=== PATIENT | male | born 1960 | race Caucasian/White ===

== ENCOUNTER 2018-11-25 10:40 | Emergency (ER) | payer OTHER, SELFPAY ==
--- NOTE | 2018-11-25 11:23 | RAD ---
XR Chest 1 View Portable History: Palpitations Comparison: None. Findings: Heart size mildly enlarged. No pneumothorax. No effusion. Likely distended left upper lobe pulmonary vessel seen en face and less likely likely a nodule. Old left midclavicular fracture. No acute osseous abnormality. Impression: Mild cardiomegaly otherwise no acute intrathoracic abnormality.
[2018-11-25 11:24] LABS: Hemoglobin 14.4 g/dL (14.0-18.0); Mean Corpuscular HGB CONC 34.4 g/dL (32.0-36.0); Mean Corpuscular Hemoglobin 38.5 pg (27.0-31.0); Platelet Count 169 thou/uL (130-400); RBC Distribution Width 13.6 % (11.5-14.5); Red Blood Cell (RBC) Count 3.74 mill/uL (4.70-6.10); White Blood Cell (WBC) Count 3.6 thou/uL (4.8-10.8)
[2018-11-25 11:43] LABS: Calcium 9.7 mg/dL (7.8-10.44); Chloride 98 mmol/L (98-107); Potassium 3.9 mmol/L (3.5-5.1); Sodium 136 mmol/L (136-145)
[2018-11-25 11:44] LABS: Globulin 3.2 g/dL (2.4-3.5); Glucose 111 mg/dL (70-105); Protein, Total 7.2 g/dL (6.0-8.3)
[2018-11-25 11:45] LABS: Anion Gap 15 mmol/L (10-20); Carbon Dioxide 27 mmol/L (22-29)
[2018-11-25 11:46] LABS: Bilirubin, Total 1.1 mg/dL (0.2-1.2)
[2018-11-25 11:47] LABS: Alkaline Phosphatase 123 U/L (40-110); Calc. Creatinine Clearance 0 mL/min (70-130); Estimated GFR-MDRD 71
[2018-11-25 11:48] LABS: BUN (Urea Nitrogen) 14 mg/dL (8.4-25.7)
[2018-11-25 11:49] LABS: AST (SGOT) 231 U/L (5-34)
[2018-11-25 11:50] LABS: ALT (SGPT) 87 U/L (8-55); Lipase 16 U/L (8-78)
[2018-11-25 11:52] LABS: Band 16 % (5-11); Lymphocytes 23 % (21-51); MDiff Complete? YES; Macrocytosis MODERATE=16-30 cells (100X) (0-5/hpf); Monocytes 12 % (0-10); Neutrophil 42 % (42-75); Platelet Morphology Comment Appears Adequate; Polychromasia SLIGHT = 2-3 cells (100X) (0-2/hpf); Reactive Lymphocytes 7 % (0-10); Stomatocytes MODERATE= 6-15 cells (100X) (0-1/hpf)
[2018-11-25 11:55] LABS: Magnesium 1.7 mg/dL (1.6-2.6); Phosphorus 3.4 mg/dL (2.3-4.7)
== END 2018-11-25 14:32 | disposition home or self-care (01) ==
LOC: ERS 10:40
DX: I48.91 Unspecified atrial fibrillation (principal); I10 Essential (primary) hypertension; R00.2 Palpitations; R74.0 Nonspecific elevation of levels of transaminase and lactic acid dehydrogenase [LDH]; F17.210 Nicotine dependence, cigarettes, uncomplicated
CPT/HCPCS: 36415; 71045; 80053; 83690; 83735; 84100; 84484; 85025; 93005

== ENCOUNTER 2020-08-16 08:03 | Inpatient (IN) | payer OTHER, SELFPAY ==
[2020-08-16] MEDS ORDERED: Aspirin Chewable 81 MG TAB ONE (08:34)
[2020-08-16] MEDS ORDERED: Lorazepam 2 MG/ML VIAL ONE (08:34)
[2020-08-16] MEDS ORDERED: Diltiazem HCl 125 MG, Admixture Fee 1 EACH in Sodium Chloride 0.9% 100 ML IVPB SCH (08:45)
[2020-08-16 08:53] LABS: Band 4 % (5-11); Hemoglobin 14.3 g/dL (14.0-18.0); Lymphocytes 28 % (21-51); MDiff Complete? YES; Macrocytosis MODERATE=16-30 cells (100X) (0-5/hpf); Mean Corpuscular HGB CONC 32.5 g/dL (32.0-36.0); Mean Corpuscular Hemoglobin 40.4 pg (27.0-31.0); Mean Platelet Volume 9.5 fL (7.4-10.4); Monocytes 14 % (0-10); Neutrophil 53 % (42-75); Platelet Count 140 thou/uL (130-400); Platelet Morphology Comment Appears Adequate; RBC Distribution Width 14.5 % (11.5-14.5); Reactive Lymphocytes 1 % (0-10); Red Blood Cell (RBC) Count 3.55 mill/uL (4.70-6.10); Stomatocytes SLIGHT = 2-5 cells (100X) (0-1/hpf); White Blood Cell (WBC) Count 4.3 thou/uL (4.8-10.8)
[2020-08-16 09:11] LABS: INR-International Normal Ratio 1.1; PTT 29.4 sec (22.9-36.1); Prothrombin Time 14.1 sec (12.0-14.7)
[2020-08-16 09:13] LABS: D-Dimer Test 0.96 *mcg/mL (0.27-0.43)
[2020-08-16 09:18] LABS: AST (SGOT) 86 U/L (5-34); Alkaline Phosphatase 142 U/L (40-110); Anion Gap 21 mmol/L (10-20); BUN (Urea Nitrogen) 8 mg/dL (8.4-25.7); Calc. Creatinine Clearance 0 mL/min (70-130); Carbon Dioxide 22 mmol/L (22-29); Globulin 3.3 g/dL (2.4-3.5); Glucose 139 mg/dL (70-105)
[2020-08-16 09:29] LABS: Albumin 3.9 g/dL (3.5-5.0)
[2020-08-16 09:30] LABS: Chloride 95 mmol/L (98-107); Sodium 133 mmol/L (136-145)
[2020-08-16 09:31] LABS: Calcium 9.8 mg/dL (7.8-10.44)
[2020-08-16 09:32] LABS: Protein, Total 7.2 g/dL (6.0-8.3)
[2020-08-16] MEDS ORDERED: Magnesium 2 GM/50 ML BAG (IN WATER) ONE (09:32)
[2020-08-16 09:33] LABS: Bilirubin, Total 3.3 mg/dL (0.2-1.2)
[2020-08-16 10:22] LABS: ALT (SGPT) 33 U/L (8-55)
[2020-08-16 11:39] LABS: Troponin I Less than 0.010 ng/mL (< 0.028)
[2020-08-16] MEDS ORDERED: Enoxaparin Sodium 30 MG/0.3 ML SYRINGE ONE (11:46)
[2020-08-16] MEDS ORDERED: Enoxaparin Sodium 60 MG/0.6 ML SYRINGE ONE (11:46)
[2020-08-16] MEDS ORDERED: Ondansetron ODT 4 MG TAB PO PRN (12:17)
[2020-08-16] MEDS ORDERED: Ondansetron PF 4 MG/2 ML Vial IVP PRN (12:17)
[2020-08-16] MEDS ORDERED: Digoxin 0.5 MG/2 ML AMP SLOW IVP SCH (12:17)
[2020-08-16] MEDS ORDERED: Acetaminophen 500 MG TAB PO PRN (12:17)
[2020-08-16] MEDS ORDERED: Labetalol HCl 100 MG/20 ML VIAL SLOW IVP PRN (12:17)
[2020-08-16] MEDS ORDERED: Famotidine 20 MG TAB PO SCH (12:30)
[2020-08-16] MEDS ORDERED: Digoxin 0.5 MG/2 ML AMP ONE (13:24)
[2020-08-16 14:06] LABS: Magnesium 1.4 mg/dL (1.6-2.6); Phosphorus 3.5 mg/dL (2.3-4.7)
[2020-08-16 14:25] VITALS: BMI 29.4
[2020-08-16] MEDS: Sodium Chloride 0.9% 1,000 ML IV SCH (14:48)
[2020-08-16] MEDS: Thiamine 100 MG TAB PO SCH (14:51)
[2020-08-16] MEDS: Folic Acid 1 MG TAB PO SCH (14:51)
[2020-08-16] MEDS: Multivit, Therapeutic 1 TAB PO SCH (14:51)
[2020-08-16 15:04] LABS: Troponin I Less than 0.010 ng/mL (< 0.028)
[2020-08-16] MEDS: Digoxin 0.5 MG/2 ML AMP SLOW IVP SCH ×2 (16:44→20:18)
[2020-08-16] MEDS: Enoxaparin Sodium 100 MG/ML SYRINGE SC SCH (20:19)
[2020-08-16] MEDS: Famotidine 20 MG TAB PO SCH (20:19)
[2020-08-17] MEDS: Digoxin 0.5 MG/2 ML AMP SLOW IVP SCH ×2 (00:01→04:50)
[2020-08-17] MEDS: Sodium Chloride 0.9% 1,000 ML IV SCH ×2 (02:36→16:08)
[2020-08-17] MEDS ORDERED: Diltiazem 125 MG in Sodium Chloride 0.9% 100 ML IVPB SCH ×2 (03:30→17:12)
[2020-08-17 05:05] LABS: Hemoglobin 13.1 g/dL (14.0-18.0); Mean Corpuscular HGB CONC 33.5 g/dL (32.0-36.0); Mean Corpuscular Hemoglobin 42.1 pg (27.0-31.0); Mean Platelet Volume 9.8 fL (7.4-10.4); Platelet Count 121 thou/uL (130-400); RBC Distribution Width 14.3 % (11.5-14.5); Red Blood Cell (RBC) Count 3.12 mill/uL (4.70-6.10); White Blood Cell (WBC) Count 3.6 thou/uL (4.8-10.8)
[2020-08-17 05:11] LABS: ALT (SGPT) 27 U/L (8-55); AST (SGOT) 78 U/L (5-34); Albumin 3.3 g/dL (3.5-5.0); Alkaline Phosphatase 120 U/L (40-110); Anion Gap 15 mmol/L (10-20); BUN (Urea Nitrogen) 7 mg/dL (8.4-25.7); Bilirubin, Total 2.2 mg/dL (0.2-1.2); Calc. Creatinine Clearance 158 mL/min (70-130); Calcium 8.9 mg/dL (7.8-10.44); Carbon Dioxide 24 mmol/L (22-29); Chloride 99 mmol/L (98-107); Globulin 2.7 g/dL (2.4-3.5); Glucose 106 mg/dL (70-105); Magnesium 1.7 mg/dL (1.6-2.6); Potassium 4.4 mmol/L (3.5-5.1); Sodium 134 mmol/L (136-145)
[2020-08-17 05:41] LABS: Band 10 % (5-11); Eosinophils 1 % (0-10); Lymphocytes 28 % (21-51); MDiff Complete? YES; Monocytes 17 % (0-10); Neutrophil 44 % (42-75)
[2020-08-17] MEDS: Thiamine 100 MG TAB PO SCH (08:34)
[2020-08-17] MEDS: buPROPion 75 MG TAB PO SCH ×2 (08:34→20:51)
[2020-08-17] MEDS: Aspirin 81 mg Enteric Coated Tablet PO SCH (08:34)
[2020-08-17] MEDS: Famotidine 20 MG TAB PO SCH ×2 (08:34→20:52)
[2020-08-17] MEDS: Enoxaparin Sodium 100 MG/ML SYRINGE SC SCH ×2 (08:34→20:51)
[2020-08-17] MEDS: Folic Acid 1 MG TAB PO SCH (08:35)
[2020-08-17] MEDS: Multivit, Therapeutic 1 TAB PO SCH (08:35)
[2020-08-17] MEDS ORDERED: Furosemide 40 MG/4 ML VIAL SLOW IVP SCH (13:00)
[2020-08-17 13:12] LABS: Hemoglobin A1c 4.7 % (4.0-6.0)
[2020-08-17] MEDS ORDERED: Carvedilol 6.25 MG TAB PO SCH (21:00)
[2020-08-18] MEDS: Sodium Chloride 0.9% 1,000 ML IV SCH (05:26)
[2020-08-18] MEDS ORDERED: Diltiazem 125 MG in Sodium Chloride 0.9% 100 ML IVPB SCH (08:22)
[2020-08-18 08:50] LABS: Anion Gap 13 mmol/L (10-20); BUN (Urea Nitrogen) 6 mg/dL (8.4-25.7); Calc. Creatinine Clearance 158 mL/min (70-130); Calcium 8.7 mg/dL (7.8-10.44); Carbon Dioxide 25 mmol/L (22-29); Chloride 100 mmol/L (98-107); Glucose 94 mg/dL (70-105); Potassium 4.2 mmol/L (3.5-5.1); Sodium 134 mmol/L (136-145)
[2020-08-18] MEDS: Folic Acid 1 MG TAB PO SCH (09:46)
[2020-08-18] MEDS: Famotidine 20 MG TAB PO SCH ×2 (09:46→20:06)
[2020-08-18] MEDS: Thiamine 100 MG TAB PO SCH (09:46)
[2020-08-18] MEDS: Aspirin 81 mg Enteric Coated Tablet PO SCH (09:46)
[2020-08-18] MEDS: Carvedilol 6.25 MG TAB PO SCH ×3 (09:47→20:06)
[2020-08-18] MEDS: Multivit, Therapeutic 1 TAB PO SCH (09:47)
[2020-08-18] MEDS: buPROPion 75 MG TAB PO SCH ×2 (09:47→20:07)
[2020-08-18] MEDS: Enoxaparin Sodium 100 MG/ML SYRINGE SC SCH ×2 (09:48→20:06)
[2020-08-18] MEDS: Digoxin 0.125 MG TAB PO SCH (10:15)
[2020-08-18] MEDS: Furosemide 40 MG/4 ML VIAL SLOW IVP SCH (10:15)
[2020-08-18] MEDS ORDERED: Furosemide 40 MG/4 ML VIAL IVP SCH (16:45)
[2020-08-18] MEDS ORDERED: Communication Order-Pharmacy FS SCH (17:15)
[2020-08-18] MEDS ORDERED: Sodium Chloride 0.9% 1,000 ML IV SCH (17:15)
[2020-08-19] MEDS: Enoxaparin Sodium 100 MG/ML SYRINGE SC SCH ×2 (07:44→20:28)
[2020-08-19] MEDS: Furosemide 40 MG/4 ML VIAL SLOW IVP SCH (07:44)
[2020-08-19] MEDS: Folic Acid 1 MG TAB PO SCH (07:45)
[2020-08-19] MEDS: Carvedilol 6.25 MG TAB PO SCH (07:45)
[2020-08-19] MEDS: Famotidine 20 MG TAB PO SCH ×2 (07:45→20:28)
[2020-08-19] MEDS: buPROPion 75 MG TAB PO SCH ×2 (07:45→20:28)
[2020-08-19] MEDS: Digoxin 0.125 MG TAB PO SCH (07:45)
[2020-08-19] MEDS: Multivit, Therapeutic 1 TAB PO SCH (07:45)
[2020-08-19] MEDS: Aspirin 81 mg Enteric Coated Tablet PO SCH (07:45)
[2020-08-19] MEDS: Thiamine 100 MG TAB PO SCH (07:45)
[2020-08-19 08:04] LABS: Anion Gap 15 mmol/L (10-20); BUN (Urea Nitrogen) 8 mg/dL (8.4-25.7); Calc. Creatinine Clearance 136 mL/min (70-130); Calcium 9.1 mg/dL (7.8-10.44); Carbon Dioxide 27 mmol/L (22-29); Chloride 94 mmol/L (98-107); Glucose 92 mg/dL (70-105); Sodium 132 mmol/L (136-145)
[2020-08-19] MEDS: Carvedilol 3.125 MG TAB PO SCH (17:02)
[2020-08-20 04:51] LABS: Hemoglobin 13.7 g/dL (14.0-18.0); Mean Corpuscular Hemoglobin 40.8 pg (27.0-31.0); Mean Platelet Volume 9.4 fL (7.4-10.4); Platelet Count 149 thou/uL (130-400); RBC Distribution Width 14.6 % (11.5-14.5); Red Blood Cell (RBC) Count 3.34 mill/uL (4.70-6.10); White Blood Cell (WBC) Count 3.5 thou/uL (4.8-10.8)
[2020-08-20 04:52] LABS: Anion Gap 16 mmol/L (10-20); BUN (Urea Nitrogen) 12 mg/dL (8.4-25.7); Calc. Creatinine Clearance 128 mL/min (70-130); Calcium 8.8 mg/dL (7.8-10.44); Carbon Dioxide 25 mmol/L (22-29); Chloride 96 mmol/L (98-107); Glucose 91 mg/dL (70-105); Magnesium 1.8 mg/dL (1.6-2.6); Potassium 3.7 mmol/L (3.5-5.1); Sodium 133 mmol/L (136-145)
[2020-08-20 05:20] LABS: Band 11 % (5-11); Eosinophils 3 % (0-10); Lymphocytes 44 % (21-51); MDiff Complete? YES; Monocytes 11 % (0-10); Neutrophil 31 % (42-75)
[2020-08-20] MEDS: Thiamine 100 MG TAB PO SCH (05:24)
[2020-08-20] MEDS: Famotidine 20 MG TAB PO SCH ×2 (05:24→20:25)
[2020-08-20] MEDS: Digoxin 0.125 MG TAB PO SCH (05:24)
[2020-08-20] MEDS: Multivit, Therapeutic 1 TAB PO SCH (05:24)
[2020-08-20] MEDS: buPROPion 75 MG TAB PO SCH ×2 (05:24→20:26)
[2020-08-20] MEDS: Sodium Chloride 0.9% 1,000 ML IV SCH ×2 (05:25→16:38)
[2020-08-20] MEDS: Folic Acid 1 MG TAB PO SCH (05:25)
[2020-08-20] MEDS: Aspirin 81 mg Enteric Coated Tablet PO SCH (05:25)
[2020-08-20] MEDS: Furosemide 40 MG/4 ML VIAL SLOW IVP SCH (05:36)
[2020-08-20] MEDS: Carvedilol 3.125 MG TAB PO SCH ×3 (05:36→16:38)
[2020-08-20] MEDS ORDERED: Heparin 10,000 UNITS/ 10 ML VIAL ONE ×2 (08:10→11:39)
[2020-08-20] MEDS ORDERED: Nitroglycerin 100MG/250ML BOT 0 ML ONE (08:11)
[2020-08-20] MEDS ORDERED: Lidocaine 1% (PF) 30 ML VIAL ONE ×2 (08:11→12:04)
[2020-08-20] MEDS ORDERED: Iopamidol 370 76% 100 ML VIAL ONE (08:47)
[2020-08-20] MEDS ORDERED: Iopamidol 370 76% 50 ML VIAL FS ONE (08:47)
[2020-08-20] MEDS ORDERED: Verapamil 5 MG/2 ML VIAL ONE ×2 (09:10→11:39)
[2020-08-20] MEDS ORDERED: Nitroglycerin 100MG/250ML BOT 250 ML ONE (11:39)
[2020-08-20] MEDS ORDERED: Digoxin 0.125 MG TAB PO SCH (13:15)
[2020-08-20] MEDS ORDERED: Sodium Chloride 0.9% 200 ML IV PRN (14:13)
[2020-08-20] MEDS ORDERED: Nitroglycerin 0.4 MG TAB (25 Tab Bottle) SL PRN (14:13)
[2020-08-20] MEDS ORDERED: Acetaminophen/Codeine 30-300mg Tablet PO PRN ×2 (14:13)
[2020-08-20] MEDS: Amiodarone 450 MG in Dextrose 5% in Water 250 ML IVPB SCH (14:31)
[2020-08-20] MEDS ORDERED: DOPamine 400 MG/D5W 250 ML 250 ML ONE (16:05)
[2020-08-20] MEDS ORDERED: DOPamine 400 MG/D5W 250 ML 250 ML IVPB SCH ×2 (16:15→16:45)
[2020-08-20] MEDS: Apixaban 5 MG TAB PO SCH (20:25)
[2020-08-21] MEDS: Amiodarone 450 MG in Dextrose 5% in Water 250 ML IVPB SCH ×2 (00:40→15:41)
[2020-08-21] MEDS: Sodium Chloride 0.9% 1,000 ML IV SCH ×2 (03:10→14:03)
[2020-08-21 08:17] LABS: Anion Gap 15 mmol/L (10-20); BUN (Urea Nitrogen) 8 mg/dL (8.4-25.7); Calc. Creatinine Clearance 136 mL/min (70-130); Calcium 9.3 mg/dL (7.8-10.44); Carbon Dioxide 24 mmol/L (22-29); Chloride 100 mmol/L (98-107); Glucose 115 mg/dL (70-105); Potassium 4.2 mmol/L (3.5-5.1); Sodium 135 mmol/L (136-145)
[2020-08-21] MEDS: Famotidine 20 MG TAB PO SCH ×2 (08:47→20:51)
[2020-08-21] MEDS: buPROPion 75 MG TAB PO SCH ×2 (08:47→20:47)
[2020-08-21] MEDS: Aspirin 81 mg Enteric Coated Tablet PO SCH (08:47)
[2020-08-21] MEDS: Apixaban 5 MG TAB PO SCH ×2 (08:47→20:52)
[2020-08-21] MEDS: Multivit, Therapeutic 1 TAB PO SCH (08:47)
[2020-08-21] MEDS: Folic Acid 1 MG TAB PO SCH (08:47)
[2020-08-21] MEDS: Thiamine 100 MG TAB PO SCH (08:48)
[2020-08-21] MEDS ORDERED: Digoxin 0.25 MG TAB PO SCH (09:00)
[2020-08-21] MEDS: Carvedilol 3.125 MG TAB PO SCH ×2 (10:40→17:27)
[2020-08-21] MEDS: Furosemide 40 MG/4 ML VIAL SLOW IVP SCH (10:40)
[2020-08-21] MEDS ORDERED: PROPOFOL 20 ML ONE (11:18)
[2020-08-21] MEDS ORDERED: PROPOFOL 200 MG/20 ML VIAL ONE (11:41)
[2020-08-21] MEDS ORDERED: Lidocaine 1% PF 5 ML VIAL ONE (11:41)
[2020-08-22] MEDS: Thiamine 100 MG TAB PO SCH (09:14)
[2020-08-22] MEDS: Carvedilol 3.125 MG TAB PO SCH ×2 (09:14→16:29)
[2020-08-22] MEDS: Aspirin 81 mg Enteric Coated Tablet PO SCH (09:14)
[2020-08-22] MEDS: buPROPion 75 MG TAB PO SCH ×2 (09:14→20:37)
[2020-08-22] MEDS: Famotidine 20 MG TAB PO SCH ×2 (09:15→20:38)
[2020-08-22] MEDS: Folic Acid 1 MG TAB PO SCH (09:15)
[2020-08-22] MEDS: Apixaban 5 MG TAB PO SCH ×2 (09:15→20:37)
[2020-08-22] MEDS: Furosemide 40 MG/4 ML VIAL SLOW IVP SCH (09:15)
[2020-08-22] MEDS: Multivit, Therapeutic 1 TAB PO SCH (09:15)
[2020-08-22] MEDS: Amiodarone 200 MG TAB PO SCH ×3 (09:16→20:37)
[2020-08-22] MEDS: DOPamine 400 MG/D5W 250 ML 250 ML IVPB SCH (09:50)
[2020-08-22 11:03] LABS: Anion Gap 14 mmol/L (10-20); BUN (Urea Nitrogen) 7 mg/dL (8.4-25.7); Calc. Creatinine Clearance 133 mL/min (70-130); Calcium 9.6 mg/dL (7.8-10.44); Carbon Dioxide 25 mmol/L (22-29); Chloride 99 mmol/L (98-107); Glucose 81 mg/dL (70-105); Potassium 3.9 mmol/L (3.5-5.1); Sodium 134 mmol/L (136-145)
[2020-08-22] MEDS: Cephalexin 250 MG CAP PO SCH ×2 (11:32→17:13)
[2020-08-23] MEDS: Cephalexin 250 MG CAP PO SCH ×4 (00:53→17:43)
[2020-08-23 09:31] LABS: Anion Gap 12 mmol/L (10-20); BUN (Urea Nitrogen) 8 mg/dL (8.4-25.7); Calc. Creatinine Clearance 112 mL/min (70-130); Calcium 9.8 mg/dL (7.8-10.44); Carbon Dioxide 26 mmol/L (22-29); Chloride 101 mmol/L (98-107); Glucose 110 mg/dL (70-105); Potassium 5.1 mmol/L (3.5-5.1); Sodium 134 mmol/L (136-145)
[2020-08-23] MEDS: Thiamine 100 MG TAB PO SCH (09:45)
[2020-08-23] MEDS: Multivit, Therapeutic 1 TAB PO SCH (09:45)
[2020-08-23] MEDS: Amiodarone 200 MG TAB PO SCH ×3 (09:45→20:30)
[2020-08-23] MEDS: buPROPion 75 MG TAB PO SCH ×2 (09:45→20:30)
[2020-08-23] MEDS: Famotidine 20 MG TAB PO SCH ×2 (09:45→20:30)
[2020-08-23] MEDS: Apixaban 5 MG TAB PO SCH ×2 (09:45→20:30)
[2020-08-23] MEDS: Folic Acid 1 MG TAB PO SCH (09:45)
[2020-08-23] MEDS: Aspirin 81 mg Enteric Coated Tablet PO SCH (09:45)
[2020-08-23] MEDS: Furosemide 40 MG/4 ML VIAL SLOW IVP SCH (09:46)
[2020-08-23] MEDS: DOPamine 400 MG/D5W 250 ML 250 ML IVPB SCH (15:25)
[2020-08-23] MEDS ORDERED: DOPamine 400 MG/D5W 250 ML 250 ML IVPB SCH (16:26)
[2020-08-24] MEDS: Cephalexin 250 MG CAP PO SCH ×4 (00:16→18:36)
[2020-08-24] MEDS: Famotidine 20 MG TAB PO SCH ×2 (08:23→21:28)
[2020-08-24] MEDS: Apixaban 5 MG TAB PO SCH ×2 (08:23→21:28)
[2020-08-24] MEDS: Folic Acid 1 MG TAB PO SCH (08:23)
[2020-08-24] MEDS: Amiodarone 200 MG TAB PO SCH ×3 (08:23→21:27)
[2020-08-24] MEDS: Aspirin 81 mg Enteric Coated Tablet PO SCH (08:23)
[2020-08-24] MEDS: Thiamine 100 MG TAB PO SCH (08:24)
[2020-08-24] MEDS: Multivit, Therapeutic 1 TAB PO SCH (08:24)
[2020-08-24] MEDS: buPROPion 75 MG TAB PO SCH ×2 (08:28→21:28)
[2020-08-24 10:02] LABS: Anion Gap 11 mmol/L (10-20); BUN (Urea Nitrogen) 9 mg/dL (8.4-25.7); Calc. Creatinine Clearance 105 mL/min (70-130); Calcium 9.8 mg/dL (7.8-10.44); Carbon Dioxide 28 mmol/L (22-29); Chloride 98 mmol/L (98-107); Glucose 119 mg/dL (70-105); Potassium 4.3 mmol/L (3.5-5.1); Sodium 133 mmol/L (136-145)
[2020-08-24] MEDS: Furosemide 40 MG/4 ML VIAL SLOW IVP SCH (10:29)
[2020-08-24] MEDS ORDERED: Carvedilol 3.125 MG TAB PO SCH (10:45)
[2020-08-24] MEDS: Carvedilol 3.125 MG TAB PO SCH (17:43)
[2020-08-24] MEDS ORDERED: Polyethylene Glycol 3350 17 GM Packet PO SCH (19:15)
[2020-08-25] MEDS: Cephalexin 250 MG CAP PO SCH ×5 (00:06→23:57)
[2020-08-25] MEDS: Apixaban 5 MG TAB PO SCH ×2 (09:02→20:36)
[2020-08-25] MEDS: Famotidine 20 MG TAB PO SCH ×2 (09:02→20:36)
[2020-08-25] MEDS: Multivit, Therapeutic 1 TAB PO SCH (09:02)
[2020-08-25] MEDS: buPROPion 75 MG TAB PO SCH ×2 (09:02→20:36)
[2020-08-25] MEDS: Folic Acid 1 MG TAB PO SCH (09:02)
[2020-08-25] MEDS: Amiodarone 200 MG TAB PO SCH ×3 (09:02→20:37)
[2020-08-25] MEDS: Aspirin 81 mg Enteric Coated Tablet PO SCH (09:02)
[2020-08-25] MEDS: Thiamine 100 MG TAB PO SCH (09:02)
[2020-08-25] MEDS: Polyethylene Glycol 3350 17 GM Packet PO SCH (09:03)
[2020-08-25] MEDS ORDERED: DOPamine 400 MG/D5W 250 ML 250 ML IVPB SCH ×2 (15:00→17:52)
[2020-08-26] MEDS: Cephalexin 250 MG CAP PO SCH (06:01)
[2020-08-26 08:06] LABS: Hemoglobin 15.3 g/dL (14.0-18.0); Mean Corpuscular HGB CONC 31.6 g/dL (32.0-36.0); Mean Corpuscular Hemoglobin 39.2 pg (27.0-31.0); Mean Platelet Volume 9.3 fL (7.4-10.4); Platelet Count 240 thou/uL (130-400); RBC Distribution Width 14.4 % (11.5-14.5); White Blood Cell (WBC) Count 4.8 thou/uL (4.8-10.8)
[2020-08-26 08:20] LABS: Anion Gap 11 mmol/L (10-20); BUN (Urea Nitrogen) 9 mg/dL (8.4-25.7); Calc. Creatinine Clearance 92 mL/min (70-130); Carbon Dioxide 28 mmol/L (22-29); Chloride 96 mmol/L (98-107); Glucose 79 mg/dL (70-105); Potassium 5.4 mmol/L (3.5-5.1); Sodium 130 mmol/L (136-145)
[2020-08-26] MEDS: Amiodarone 200 MG TAB PO SCH ×2 (08:57→20:58)
[2020-08-26] MEDS: Famotidine 20 MG TAB PO SCH ×2 (08:57→20:58)
[2020-08-26] MEDS: Multivit, Therapeutic 1 TAB PO SCH (08:57)
[2020-08-26] MEDS: Apixaban 5 MG TAB PO SCH ×2 (08:57→20:58)
[2020-08-26] MEDS: Folic Acid 1 MG TAB PO SCH (08:57)
[2020-08-26] MEDS: buPROPion 75 MG TAB PO SCH ×2 (08:57→20:58)
[2020-08-26] MEDS: Aspirin 81 mg Enteric Coated Tablet PO SCH (08:57)
[2020-08-26] MEDS: Thiamine 100 MG TAB PO SCH (08:57)
[2020-08-26] MEDS: Polyethylene Glycol 3350 17 GM Packet PO SCH (08:58)
[2020-08-26 09:09] LABS: Band 2 % (5-11); Eosinophils 4 % (0-10); Large Platelets SLIGHT; Lymphocytes 29 % (21-51); MDiff Complete? YES; Macrocytosis MODERATE=16-30 cells (100X) (0-5/hpf); Monocytes 18 % (0-10); Neutrophil 44 % (42-75); Platelet Morphology Comment Appears Adequate; Reactive Lymphocytes 1 % (0-10)
[2020-08-26] MEDS: Carvedilol 3.125 MG TAB PO SCH (16:49)
[2020-08-27 07:57] LABS: Anion Gap 12 mmol/L (10-20); BUN (Urea Nitrogen) 11 mg/dL (8.4-25.7); Calc. Creatinine Clearance 85 mL/min (70-130); Carbon Dioxide 28 mmol/L (22-29); Chloride 99 mmol/L (98-107); Glucose 92 mg/dL (70-105); Potassium 5.1 mmol/L (3.5-5.1); Sodium 134 mmol/L (136-145)
[2020-08-27 08:26] VITALS: BP 118/80; TEMP 98.2
[2020-08-27] MEDS: Famotidine 20 MG TAB PO SCH (08:28)
[2020-08-27] MEDS: Folic Acid 1 MG TAB PO SCH (08:28)
[2020-08-27] MEDS: Carvedilol 3.125 MG TAB PO SCH (08:28)
[2020-08-27] MEDS: Thiamine 100 MG TAB PO SCH (08:28)
[2020-08-27] MEDS: Aspirin 81 mg Enteric Coated Tablet PO SCH (08:28)
[2020-08-27] MEDS: Multivit, Therapeutic 1 TAB PO SCH (08:28)
[2020-08-27] MEDS: Apixaban 5 MG TAB PO SCH (08:29)
[2020-08-27] MEDS: Polyethylene Glycol 3350 17 GM Packet PO SCH (08:29)
[2020-08-27] MEDS: Amiodarone 200 MG TAB PO SCH (08:29)
[2020-08-27] MEDS ORDERED: Furosemide 20 MG TAB PO SCH (09:00)
[2020-08-27] MEDS: buPROPion 75 MG TAB PO SCH (09:46)
== END 2020-08-27 11:17 | disposition home or self-care (01) | DRG 286 ==
LOC: ERS 08:03 → ERHOLD 10:54 → 2NO 14:06
PROVIDERS: ADMIT Family Medicine; ATTEND Internal Medicine
PROC: 4A023N7 Measurement of Cardiac Sampling and Pressure, Left Heart, Percutaneous Approach (ICD-10-PCS; principal; 2020-08-20)
PROC: B2111ZZ Fluoroscopy of Multiple Coronary Arteries using Low Osmolar Contrast (ICD-10-PCS; 2020-08-20)
PROC: B2151ZZ Fluoroscopy of Left Heart using Low Osmolar Contrast (ICD-10-PCS; 2020-08-20)
DX: I48.0 Paroxysmal atrial fibrillation (principal); I50.23 Acute on chronic systolic (congestive) heart failure; E87.1 Hypo-osmolality and hyponatremia; L03.114 Cellulitis of left upper limb; T82.7XXA Infection and inflammatory reaction due to other cardiac and vascular devices, implants and grafts, initial encounter; I42.6 Alcoholic cardiomyopathy; F32.9 Major depressive disorder, single episode, unspecified; F17.210 Nicotine dependence, cigarettes, uncomplicated; F10.10 Alcohol abuse, uncomplicated; Y83.8 Other surgical procedures as the cause of abnormal reaction of the patient, or of later complication, without mention of misadventure at the time of the procedure; E87.5 Hyperkalemia; I11.0 Hypertensive heart disease with heart failure; Z82.49 Family history of ischemic heart disease and other diseases of the circulatory system; Z79.899 Other long term (current) drug therapy
CPT/HCPCS: 36415; 36416; 71045; 71275; 80048; 80053; 82607; 82746; 83036; 83735; 83880; 84100; 84439; 84443; 84481; 84484; 85025; 85379; 85610; 85730; 92960; 93005; 93010; 93306; 93312; 93458; 93798; 96365; 96366; 96367; 96375; 96376; J0282; J1160; J1265; J1644; J1650; J1940; J2001; J2060; J2704; J3475; J3490; J7070; Q9967

== ENCOUNTER 2020-09-27 10:09 | Day surgery (SDC) | payer OTHER, SELFPAY ==
[2020-09-26 15:44] VITALS: BMI 26.4
[2020-09-27] MEDS ORDERED: PROPOFOL 20 ML ONE (11:32)
== END 2020-09-27 13:15 | disposition home or self-care (01) ==
LOC: CCL 10:09
PROVIDERS: ATTEND Internal Medicine Cardiovascular Disease
PROC: 5A2204Z Restoration of Cardiac Rhythm, Single (ICD-10-PCS; principal; 2020-09-27)
PROC: B24BZZ4 Ultrasonography of Heart with Aorta, Transesophageal (ICD-10-PCS; principal; 2020-09-27)
DX: I48.92 Unspecified atrial flutter (principal); I48.91 Unspecified atrial fibrillation; I42.0 Dilated cardiomyopathy; I08.1 Rheumatic disorders of both mitral and tricuspid valves; Q21.1 Atrial septal defect; I11.0 Hypertensive heart disease with heart failure; I50.22 Chronic systolic (congestive) heart failure; Z79.01 Long term (current) use of anticoagulants; Z79.82 Long term (current) use of aspirin; Z79.899 Other long term (current) drug therapy; Z87.891 Personal history of nicotine dependence; Z95.810 Presence of automatic (implantable) cardiac defibrillator
CPT/HCPCS: 92960; 93005; 93010; 93312; J2704

== ENCOUNTER 2020-12-25 08:23 | Outpatient (CLI) | payer OTHER ==
[2020-12-25 17:20] LABS: SARS-CoV-2 PCR by NAA Not Detected (NotDetected)
== END 2020-12-25 08:24 | disposition home or self-care (01) ==
LOC: LABBT 08:23
PROVIDERS: ATTEND Internal Medicine Gastroenterology
DX: Z01.812 Encounter for preprocedural laboratory examination (principal); Z12.11 Encounter for screening for malignant neoplasm of colon; Z20.822 Contact with and (suspected) exposure to COVID-19
CPT/HCPCS: U0003; U0005

== ENCOUNTER 2020-12-27 09:16 | Day surgery (SDC) | payer OTHER ==
[2020-12-25 15:39] VITALS: BMI 28.1
[2020-12-27] MEDS ORDERED: ePHEDrine 50 MG/ML VIAL ONE (10:15)
[2020-12-27] MEDS ORDERED: PHENYLEPHRINE-NS 100 MCG/ML 10 ML SYRINGE ONE (10:15)
[2020-12-27] MEDS ORDERED: PROPOFOL 200 MG/20 ML VIAL ONE (10:15)
[2020-12-27] MEDS ORDERED: Lidocaine 1% PF 5 ML VIAL ONE (10:15)
== END 2020-12-27 11:40 | disposition home or self-care (01) ==
LOC: SDC 09:16
PROVIDERS: ATTEND Internal Medicine Gastroenterology
PROC: 0DBH8ZX Excision of Cecum, Via Natural or Artificial Opening Endoscopic, Diagnostic (ICD-10-PCS; principal; 2020-12-27)
PROC: 0DBN8ZX Excision of Sigmoid Colon, Via Natural or Artificial Opening Endoscopic, Diagnostic (ICD-10-PCS; principal; 2020-12-27)
DX: Z12.11 Encounter for screening for malignant neoplasm of colon (principal); D12.5 Benign neoplasm of sigmoid colon; K63.5 Polyp of colon; K57.30 Diverticulosis of large intestine without perforation or abscess without bleeding; K64.9 Unspecified hemorrhoids; I50.9 Heart failure, unspecified; M19.90 Unspecified osteoarthritis, unspecified site; F17.210 Nicotine dependence, cigarettes, uncomplicated; Z95.5 Presence of coronary angioplasty implant and graft; Z98.890 Other specified postprocedural states; Z79.01 Long term (current) use of anticoagulants; Z79.899 Other long term (current) drug therapy; Z79.82 Long term (current) use of aspirin
CPT/HCPCS: 88305; J2704; J3490

== ENCOUNTER 2021-04-11 14:29 | Outpatient (CLI) | payer OTHER ==
[2021-04-11 16:07] LABS: Hemoglobin 13.3 g/dL (13.5-17.5); Mean Corpuscular HGB CONC 34.4 g/dL (32.0-36.0); Mean Corpuscular Hemoglobin 39.3 pg (27.0-33.0); Mean Corpuscular Volume 114.5 fl (81.2-95.1); Mean Platelet Volume 11.8 fl (7.4-10.4); Platelet Count 171 10x3/uL (150-450); Red Blood Cell (RBC) Count 3.38 10x6/uL (4.32-5.72); White Blood Cell (WBC) Count 4.5 10x3/uL (3.5-10.5)
[2021-04-11 16:14] LABS: Anion Gap 15 mmol/L (10-20); BUN (Urea Nitrogen) 16 mg/dL (8.4-25.7); Calc. Creatinine Clearance 0 mL/min (70-130); Calcium 9.8 mg/dL (7.8-10.44); Carbon Dioxide 26 mmol/L (22-29); Chloride 104 mmol/L (98-107); Glucose 99 mg/dL (70-105); Potassium 3.7 mmol/L (3.5-5.1); Sodium 141 mmol/L (136-145)
[2021-04-11 16:29] LABS: INR-International Normal Ratio 0.9; PTT 24.1 sec (22.0-33.0)
[2021-04-12 00:17] LABS: SARS-CoV-2 PCR by NAA Not Detected (NotDetected)
== END 2021-04-11 14:30 | disposition home or self-care (01) ==
LOC: LABBT 14:29
PROVIDERS: ATTEND Internal Medicine Cardiovascular Disease
DX: Z01.812 Encounter for preprocedural laboratory examination (principal); Z20.822 Contact with and (suspected) exposure to COVID-19
CPT/HCPCS: 80048; 85027; 85610; 85730; U0003; U0005

== ENCOUNTER → 2021-04-14 | Day surgery (SDC) | payer OTHER ==
[2021-04-11 08:41] VITALS: BMI 27.1
[~2021-04-14] MED LIST: Apixaban 5 MG TAB PO SCH; Aspirin 81 mg Enteric Coated Tablet PO SCH; Carvedilol 3.125 MG TAB PO SCH; Dexamethasone 20 MG/5 ML VIAL ONE; Fentanyl 100 MCG/2 ML VIAL ONE; Furosemide 40 MG TAB PO PRN; Glycopyrrolate 0.2 MG/ML 5 ML SYRINGE ONE; Heparin 10,000 UNITS/ 10 ML VIAL ONE; Heparin 25,000 units/D5W 500 ML ONE; Isoproterenol 0.2 MG/1 ML AMP ONE; Ketorolac Tromethamine 30 MG/ML VIAL IVP PRN; Lidocaine 1% PF 5 ML VIAL ONE; Midazolam HCl 2 mg/2 ml Vial ONE; Ondansetron PF 4 MG/2 ML Vial ONE; PHENYLEPHRINE-NS 100 MCG/ML 10 ML SYRINGE ONE; PROPOFOL 200 MG/20 ML VIAL ONE; Potassium Chloride 20 MEQ TAB PO PRN; Protamine Sulfate 50 MG/5 ML VIAL ONE; Rocuronium Bromide 10 MG/ML (10ML VIAL) ONE; Sucralfate 1 GM TAB PO SCH; ePHEDrine Sulfate 50 MG/10 ML VIAL ONE
== END | disposition home or self-care (01) ==
LOC: SDC 07:38
PROVIDERS: ATTEND Internal Medicine Cardiovascular Disease
PROC: 02583ZZ Destruction of Conduction Mechanism, Percutaneous Approach (ICD-10-PCS; principal; 2021-04-14)
PROC: 4A0234Z Measurement of Cardiac Electrical Activity, Percutaneous Approach (ICD-10-PCS; principal; 2021-04-14)
PROC: 02K83ZZ Map Conduction Mechanism, Percutaneous Approach (ICD-10-PCS; principal; 2021-04-14)
PROC: B244ZZZ Ultrasonography of Right Heart (ICD-10-PCS; principal; 2021-04-14)
PROC: 4A023FZ Measurement of Cardiac Rhythm, Percutaneous Approach (ICD-10-PCS; principal; 2021-04-14)
DX: I48.3 Typical atrial flutter (principal); I48.19 Other persistent atrial fibrillation; Z79.01 Long term (current) use of anticoagulants; Z79.82 Long term (current) use of aspirin; Z79.899 Other long term (current) drug therapy
CPT/HCPCS: 85347; 93005; 93613; 93623; 93656; 93657; 93662; C1732; C1759; J1100; J1644; J2250; J2405; J2704; J2720; J3010

== ENCOUNTER 2022-08-21 15:20 | Emergency (ER) | payer OTHER ==
[2022-08-21] MEDS ORDERED: Lidocaine 1% PF 5 ML VIAL ONE (15:42)
[2022-08-21] MEDS ORDERED: Boostrix 0.5 ML (Tdap) VIAL (>/=7 yrs of age) ONE (15:42)
[2022-08-21] MEDS ORDERED: Bacitracin 1 PK ONE (16:30)
== END 2022-08-21 16:35 | disposition home or self-care (01) ==
LOC: ERS 15:20
DX: S61.512A Laceration without foreign body of left wrist, initial encounter (principal); F17.210 Nicotine dependence, cigarettes, uncomplicated; W26.8XXA Contact with other sharp object(s), not elsewhere classified, initial encounter; Z79.01 Long term (current) use of anticoagulants
CPT/HCPCS: 12001; 90471; 90715

== ENCOUNTER 2023-11-25 06:18 | Day surgery (SDC) | payer OTHER ==
[2023-11-24 12:57] VITALS: BMI 27.8
[2023-11-25 07:17] LABS: INR-International Normal Ratio 1.1; PTT 30.2 sec (22.9-36.1); Prothrombin Time 13.9 sec (12.0-14.7)
[2023-11-25 07:22] LABS: Hematocrit 36.5 % (42.0-52.0); Hemoglobin 12.6 g/dL (14.0-18.0); Mean Corpuscular HGB CONC 34.5 g/dL (32.0-36.0); Mean Corpuscular Volume 121.7 fL (78.0-98.0); Mean Platelet Volume 11.2 fL (7.4-10.4); Platelet Count 204 10x3/uL (130-400); RBC Distribution Width 14.7 % (11.5-14.5)
[2023-11-25 07:49] LABS: Band 1 % (5-11); Eosinophils 1 % (0-10); Large Platelets 1.9 % (0-5); Lymphocytes 27 % (21-51); Macrocytosis MODERATE=16-30 cells HPF (0-5); Monocytes 21 % (0-10); Neutrophil 48 % (42-75); Platelet Adequacy Comment Platelets Normal; Reactive Lymphocytes 2 % (0-10)
[2023-11-25] MEDS ORDERED: PROPOFOL 20 ML ONE (08:02)
[2023-11-25] MEDS ORDERED: PHENYLEPHRINE-NS 100 MCG/ML 10 ML SYRINGE ONE (08:02)
[2023-11-25] MEDS ORDERED: Lidocaine 1% PF 5 ML VIAL ONE (08:11)
== END 2023-11-25 09:23 | disposition home or self-care (01) ==
LOC: SDC 06:18
PROVIDERS: ATTEND Internal Medicine Cardiovascular Disease
PROC: B246ZZZ Ultrasonography of Right and Left Heart (ICD-10-PCS; principal; 2023-11-25)
PROC: 5A2204Z Restoration of Cardiac Rhythm, Single (ICD-10-PCS; principal; 2023-11-25)
DX: I48.92 Unspecified atrial flutter (principal); I28.9 Disease of pulmonary vessels, unspecified; F32.A Depression, unspecified; I48.0 Paroxysmal atrial fibrillation; I50.22 Chronic systolic (congestive) heart failure; I42.9 Cardiomyopathy, unspecified; I34.0 Nonrheumatic mitral (valve) insufficiency; Z98.890 Other specified postprocedural states; Z86.79 Personal history of other diseases of the circulatory system; Z87.891 Personal history of nicotine dependence; Z79.01 Long term (current) use of anticoagulants; Z79.899 Other long term (current) drug therapy
CPT/HCPCS: 85025; 85610; 85730; 92960; 93005; 93010; 93306; J2704

== ENCOUNTER 2024-01-17 07:43 | Day surgery (SDC) | payer OTHER ==
[2024-01-17] MEDS ORDERED: Protamine Sulfate 50 MG/5 ML VIAL ONE ×3 (07:51→15:58)
[2024-01-17] MEDS ORDERED: Heparin 25,000 units/D5W 500 ML ONE (07:51)
[2024-01-17] MEDS ORDERED: Heparin 10,000 UNITS/ 10 ML VIAL ONE (07:51)
[2024-01-17] MEDS ORDERED: fentaNYL 50 mcg/mL 1 mL Vial ONE ×2 (09:01→13:20)
[2024-01-17] MEDS ORDERED: Midazolam HCl 2 mg/2 ml Vial ONE (09:01)
[2024-01-17 09:10] LABS: Anion Gap 14 mmol/L (10-20); BUN (Urea Nitrogen) 10 mg/dL (8.4-25.7); Calc. Creatinine Clearance 0 mL/min (70-130); Calcium 9.7 mg/dL (7.8-10.44); Carbon Dioxide 24 mmol/L (23-31); Chloride 103 mmol/L (98-107); Estimated GFR 99; Glucose 114 mg/dL (80-115); Potassium 4.3 mmol/L (3.5-5.1); Sodium 137 mmol/L (136-145)
[2024-01-17 09:36] LABS: PTT 28.9 sec (22.9-36.1); Prothrombin Time 12.8 sec (12.0-14.7)
[2024-01-17 09:42] LABS: Hematocrit 42.4 % (42.0-52.0); Hemoglobin 14.6 g/dL (14.0-18.0); Mean Corpuscular HGB CONC 34.4 g/dL (32.0-36.0); Mean Corpuscular Hemoglobin 40.3 pg (27.0-31.0); Mean Corpuscular Volume 117.1 fL (78.0-98.0); Mean Platelet Volume 11.5 fL (7.4-10.4); Platelet Count 163 10x3/uL (130-400); RBC Distribution Width 12.5 % (11.5-14.5); Red Blood Cell (RBC) Count 3.62 mill/uL (4.70-6.10)
[2024-01-17 10:52] LABS: Anisocytosis MARKED = >30 cells HPF (0-5); Macrocytosis MARKED = >30 cells HPF (0-5); Ovalocytes MODERATE= 6-15 cells HPF (0-1); Platelet Adequacy Comment Platelets Normal; Polychromasia SLIGHT = 2-3 cells HPF (0-2); Stomatocytes SLIGHT = 2-5 cells HPF (0-1)
[2024-01-17 10:53] LABS: #Basophils 0.03 10x3/uL (0.0-0.2); %Basophils 0.6 % (0.0-1.0); %Eosinophils 2.8 % (0.0-10.0); %Lymphocytes 18.1 % (21.0-51.0); %Monocytes 18.3 % (0.0-10.0)
[2024-01-17] MEDS ORDERED: Isoproterenol 0.2 MG/1 ML AMP ONE ×2 (11:27→12:55)
[2024-01-17] MEDS ORDERED: Nitroglycerin 50 MG/250 ML BOT 0 ML ONE (12:10)
[2024-01-17] MEDS ORDERED: Lidocaine 1% w/Epinephrine 1:100K 20 ML VIAL ONE (13:03)
[2024-01-17] MEDS ORDERED: SUGAMMADEX SODIUM 200 MG/2 ML VIAL ONE (13:15)
[2024-01-17] MEDS ORDERED: fentaNYL PF 100 MCG/2 ML SYRINGE ONE (13:34)
== END 2024-01-17 17:04 | disposition home or self-care (01) ==
LOC: SDC 07:43
PROVIDERS: ATTEND Internal Medicine Cardiovascular Disease
PROC: 4A023FZ Measurement of Cardiac Rhythm, Percutaneous Approach (ICD-10-PCS; principal; 2024-01-17)
DX: I48.92 Unspecified atrial flutter (principal); I48.19 Other persistent atrial fibrillation; Z98.890 Other specified postprocedural states; Z79.01 Long term (current) use of anticoagulants
CPT/HCPCS: 80048; 85025; 85347; 85610; 85730; 93005; 93010; 93623; 93655; 93656; 93657; C1730; C1732; C1733; C1759; C1760; C1766; C1769; C1894; J1644; J2250; J2720; J3010

== ENCOUNTER 2024-01-26 16:15 | Emergency (ER) | payer OTHER ==
[2024-01-26] MEDS ORDERED: Lidocaine 1% PF 5 ML VIAL ONE (18:33)
[2024-01-26] MEDS ORDERED: CEFAZOLIN 1 GM VIAL ONE (19:18)
[2024-01-26] MEDS ORDERED: Sodium Chloride 0.9% 100 ML ONE (19:18)
[2024-01-26] MEDS ORDERED: Bacitracin 1 PK ONE (19:38)
[2024-01-26] MEDS ORDERED: Boostrix 0.5 ML (Tdap) VIAL (>/=7 yrs of age) ONE (19:41)
== END 2024-01-26 19:56 | disposition home or self-care (01) ==
LOC: ERS 16:15
DX: S61.412A Laceration without foreign body of left hand, initial encounter (principal); F17.210 Nicotine dependence, cigarettes, uncomplicated; W31.2XXA Contact with powered woodworking and forming machines, initial encounter; Y99.0 Civilian activity done for income or pay
CPT/HCPCS: 12001; 12031; 90471; 90715; 96374; J0690

== ENCOUNTER 2024-02-03 06:34 | Day surgery (SDC) | payer OTHER ==
[2024-02-02 08:39] VITALS: BMI 27.5
[2024-02-03] MEDS ORDERED: Sodium Chloride 0.9% 100 ML ONE (07:58)
[2024-02-03] MEDS ORDERED: CEFAZOLIN 2 GM VIAL ONE (07:58)
[2024-02-03] MEDS ORDERED: PROPOFOL 20 ML ONE ×2 (08:02→09:01)
[2024-02-03] MEDS ORDERED: fentaNYL 50 mcg/mL 1 mL Vial ONE ×2 (08:02→10:52)
[2024-02-03] MEDS ORDERED: Lidocaine 1% PF 5 ML VIAL ONE (08:02)
[2024-02-03] MEDS ORDERED: Bupivacaine PF 0.5% 30 ML VIAL ONE (08:29)
[2024-02-03] MEDS ORDERED: PHENYLEPHRINE-NS 100 MCG/ML 10 ML SYRINGE ONE (09:01)
[2024-02-03] MEDS ORDERED: ePHEDrine Sulfate 50 MG/10 ML VIAL ONE (09:05)
[2024-02-03] MEDS ORDERED: Dexamethasone 4 mg/ml Vial ONE (09:13)
[2024-02-03] MEDS ORDERED: Ondansetron PF 4 MG/2 ML Vial ONE (09:13)
== END 2024-02-03 11:35 | disposition home or self-care (01) ==
LOC: SDC 06:34
PROVIDERS: ATTEND Orthopaedic Surgery
PROC: 01R Peripheral Nervous System, Replacement (ICD-10-PCS; principal; 2024-02-03)
PROC: 0JBK0ZZ Excision of Left Hand Subcutaneous Tissue and Fascia, Open Approach (ICD-10-PCS; principal; 2024-02-03)
DX: S64.491A Injury of digital nerve of left index finger, initial encounter (principal); S61.411A Laceration without foreign body of right hand, initial encounter; I10 Essential (primary) hypertension; I48.91 Unspecified atrial fibrillation; Z98.890 Other specified postprocedural states; Z79.01 Long term (current) use of anticoagulants; Z79.899 Other long term (current) drug therapy; X58.XXXA Exposure to other specified factors, initial encounter
CPT/HCPCS: A6223; C9250; J0665; J1100; J2405; J2704; J3010